=== PATIENT | male | born 1995 | race Caucasian/White ===

== ENCOUNTER 2016-11-07 16:38 | Emergency (ER) | payer OTHER ==
[~2016-11-07] VITALS: Ht 185.4 cm; Wt 81.0 kg
[2016-11-07 16:45] VITALS: BP 138/81; TEMP 37.4; Ht 185.4 cm; Wt 81.0 kg
--- NOTE | 2016-11-07 17:17 | DIAGNOSTIC IMAGING REPORT ---
RIGHT ANKLE 3 VIEWS CLINICAL HISTORY: Right ankle injury. FINDINGS: 3 views of the right ankle are obtained. No prior studies are available for comparison at the time of dictation. The skeletal structures are well mineralized. No fracture is seen. The ankle mortise is intact. There is a joint effusion, and soft tissue edema is present around the ankle. Mild degenerative spurring is seen along the dorsal aspect of the tarsal bones. IMPRESSION: Soft tissue swelling and joint effusion. No fracture is identified. Electronically signed by: David Cruz M.D. 11/07/2016 5:16 PM Dictated Date/Time: 11/07/2016 5:15 PM
--- NOTE | 2016-11-07 17:18 | DIAGNOSTIC IMAGING REPORT ---
RIGHT FOOT 3 VIEWS CLINICAL HISTORY: Right foot injury. FINDINGS: 3 views of the right foot are obtained. No prior studies are available for comparison at the time of dictation. The skeletal structures are well mineralized. No fracture is seen. The joint spaces of the foot are well-maintained. Mild degenerative spurring is noted along the dorsal aspect of the tarsal bones. There is an ankle joint effusion. Soft tissue swelling is present around ankle. The soft tissues of the foot are normal in appearance. IMPRESSION: No acute bony abnormality is seen in the right foot. Electronically signed by: David Cruz M.D. 11/07/2016 5:17 PM Dictated Date/Time: 11/07/2016 5:16 PM
[2016-11-07 17:41] VITALS: PULSE 77; O2SAT 97
--- NOTE | 2016-11-08 15:55 | EMERGENCY ROOM VISIT NOTE ---
ED Visit Note First contact with patient: 16:54 CHIEF COMPLAINT: Right ankle and foot pain. HISTORY OF PRESENT ILLNESS: Mr. Clay is a 21-year old white male who is brought via wheelchair into the ED accompanied by a female friend complaining of right medial and lateral ankle pain and pain over the lateral aspect of the foot. He reports approximately 16 hours ago he was playing basketball. He attempted to stop quickly to make a shot and when he did he reports his ankle collapsed and rolled over. He denies any previous injuries or surgeries to the ankle or foot. Since the injury he has been having constant pain as gradually increased in intensity. He describes this pain as sharp. He places the pain over the anterior and posterior aspects of the medial and lateral malleoli and over the fourth and fifth metatarsal. He currently rates his discomfort 5/10. The pain is nonradiating. The pain worsens with weightbearing, ambulation, inversion, plantar flexion and palpation. He has not identified any alleviating factors related to the pain. He has not taken any medication for pain prior to arrival at the hospital. Associated with his pain he reported mild paresthesias in the toes. REVIEW OF SYSTEMS: As noted above in History of Present Illness. PAST MEDICAL HISTORY: Patient denies. CURRENT MEDICATIONS: Patient denies. ALLERGIES TO MEDICATIONS: He questions whether he is allergic to amoxicillin. SOCIAL HISTORY: Patient is currently employed; he feels safe in his home environment; he denies tobacco use and admits to alcohol use. PHYSICAL EXAM: Vital Signs: Date Time Temp Pulse Resp B/P Pulse Ox O2 Delivery O2 Flow Rate FiO2 11/07/16 17:41 77 16 97 11/07/16 16:45 37.4 88 20 138/81 99 Room Air General: 21 year old male in mild/moderate distress due to pain, nontoxic- appearing, afebrile and hemodynamically stable. Neurological: Awake, alert, oriented to person place and time. Answering questions appropriately and following commands. Skin: Warm dry and pink. No soft tissue injuries. Right Lower Extremity: No gross tiana deformities. No tenderness in the hip or knee. Tenderness over the anterior posterior ligamentous structures to the malleolus with moderate swelling but no bony deformity or crepitus. Moderate tenderness over the anterior posterior aspect of the ligamentous structures over the medial malleolus with mild swelling but no bony deformity or crepitus. Because of his swelling in his tenderness it is difficult to assess the ligamentous structures. There is also tenderness over the fourth and fifth metacarpal without bony deformity, crepitus, swelling or ecchymosis. Decreased range of motion in all movements of the ankle due to pain and swelling. He was able to flex and extend all toes. Throughout the foot the skin is pink and warm with brisk capillary refill. Able to distinguish light sensations through all dermatomes of the foot. ED COURSE: Patient is assessed as noted above. Right Ankle X-Rays: Was read by myself and the radiologist showing no acute fractures or dislocations. Moderate soft tissue swelling and a joint effusion. Right Foot X-Rays: Were read by myself and the radiologist showing no acute fractures or dislocations. Patient is given ice for pain, swelling and comfort; he refused pain medications. Patient is placed in a gel/X splint and is instructed on crutch use. Patient is educated about his/her condition and instructed on his/her treatment plan; she verbalizes understanding and agreement with the our plan. CLINICAL IMPRESSION: Moderate right ankle sprain. Right foot pain. DISPOSITION: Patient is discharged to home in stable condition accompanied by his ; prior to departure he was reassessed and subjectively reported he was feeling the same. PLAN: Comfort measures were discussed with the patient. Patient was encouraged to follow-up with an orthopedic physician if no better in 7 to 10 days. Patient was encouraged to return emergency department as needed for worsening/ uncontrolled pain, worsening swelling, worsening numbness or any weakness of the foot or any new/concerning symptoms.
== END 2016-11-07 17:42 | disposition home or self-care (01) ==
LOC: C.EDB 16:39 → C.EDD 17:42
DX: S93.401A Sprain of unspecified ligament of right ankle, initial encounter (principal); X50.1XXA Overexertion from prolonged static or awkward postures, initial encounter; Y93.67 Activity, basketball; Y99.8 Other external cause status